=== PATIENT | female | born 1935 | race Caucasian/White ===

== ENCOUNTER → 2016-11-30 | Outpatient (CLI) | payer OTHER, BC | LOC: BHFA 13:00 | PROVIDERS: ATTEND Surgery | DX: R60.0 Localized edema (principal); M79.662 Pain in left lower leg ==

== ENCOUNTER → 2016-12-29 | Outpatient (CLI) | payer OTHER, BC | LOC: FIMAGING 14:35 | DX: Z12.31 Encounter for screening mammogram for malignant neoplasm of breast (principal) | CPT/HCPCS: G0202 ==

== ENCOUNTER → 2017-01-14 | Outpatient (CLI) | payer OTHER, BC | LOC: FIMAGING 14:04 | PROVIDERS: ATTEND Surgery | DX: M79.662 Pain in left lower leg (principal); M25.472 Effusion, left ankle ==

== ENCOUNTER → 2017-01-29 | Outpatient (CLI) | payer OTHER, BC ==
[~2017-01-29] MED LIST: IOPAMIDOL (ISOVUE-300) 100 ML BTL ONE
== END ==
LOC: FIMAGING 14:25
PROVIDERS: ATTEND Surgery
DX: K57.30 Diverticulosis of large intestine without perforation or abscess without bleeding (principal); N32.3 Diverticulum of bladder
CPT/HCPCS: 72193; Q9967

== ENCOUNTER 2017-06-27 15:45 | Emergency (ER) | payer OTHER, BC ==
[2017-06-27 15:54] VITALS: TEMP 98.2
--- NOTE | 2017-06-27 16:38 | EDPHY ---
H & P Stated Complaint: lost balance and fell inj l shoulder denies loc or neck pain Time Seen by Provider: 06/27/17 16:12 HPI/ROS: CHIEF COMPLAINT: Mechanical fall, left shoulder pain HISTORY OF PRESENT ILLNESS: The patient presents to the ED after she sustained a mechanical fall. The patient typically walks with a walker secondary to underlying multiple sclerosis. The patient fell onto her left shoulder. She has pain in her proximal humerus and distal left clavicle. She did sustain some superficial skin tears. The patient did not strike her head or lose consciousness. She has no complaints of headache or neck pain. The patient denies additional extremity complaints. The patient reports her pain is moderate in nature. It is worsened with attempted movement. REVIEW OF SYSTEMS: A comprehensive 10 point review of systems is otherwise negative aside from elements mentioned in the history of present illness. Source: Patient - Personal History Current Tetanus/Diphtheria Vaccine: Unsure - Medical/Surgical History Hx Asthma: No Hx Chronic Respiratory Disease: No Hx Diabetes: No Hx Cardiac Disease: No Hx Renal Disease: No Hx Cirrhosis: No Hx Alcoholism: No Hx HIV/AIDS: No Hx Splenectomy or Spleen Trauma: No Other PMH: MS, CVA, atelectasis, HTN, right shoulder surgery - Social History Smoking Status: Never smoked - Physical Exam Exam: General Appearance: Elderly female, no acute distress Head: Atraumatic Eyes: Pupils equal, round, reactive ENT, Mouth: No hemotympanum, no oral trauma Neck: Nontender, trachea midline Respiratory: No chest wall tender, subcutaneous air, lungs clear bilaterally Cardiovascular: Regular rate and rhythm Abdomen: Abdomen is soft and nontender, pelvis stable Skin: Superficial skin tears noted to the right forearm and left hand Back: No midline T/L/S pain Extremities: Tenderness to palpation left distal clavicle, left proximal humerus Neurological: A&Ox3, normal motor function, normal sensory exam Constitutional: Initial Vital Signs Temperature (C) 36.8 C 06/27/17 15:51 Heart Rate 66 06/27/17 15:51 Respiratory Rate 17 06/27/17 15:51 Blood Pressure 149/84 H 06/27/17 15:51 O2 Sat (%) 90 L 06/27/17 15:51 O2 Delivery Mode Nasal Cannula O2 (L/minute) 2 Allergies/Adverse Reactions: epinephrine Allergy (Severe, Verified 06/27/17 15:50) SOB Sulfa (Sulfonamide Antibiotics) Allergy (Verified 06/27/17 15:50) Hives LACTOSE Allergy (Uncoded 10/30/11 13:50) Diarrhea Home Medications: Medication Instructions Recorded Albuterol [Proventil Inhaler] 2 puffs IH QID 10/30/11 Diltiazem HCl [Diltiazem Er] 180 mg PO BID 10/30/11 Guaifenesin [Mucinex] 1,200 mg PO BID 10/30/11 Methenamine Mandelate [METHENAMINE 500 mg PO BID 10/30/11 MANDELATE] Atenolol 11/01/15 Losartan 11/01/15 Medical Decision Making - Diagnostics Imaging Results: Imaging Impressions Shoulder X-Ray 06/27/17 16:24 Impression: 1. Fracture distal left clavicle without displacement. 2. Underlying bronchiectasis, mucous plugging, and reticular nodular densities left mid to upper lung similar to prior CT study. ED Course/Re-evaluation: The patient presents to the ED after mechanical fall. She has superficial skin tears which were treated in the emergency department with Steri-Strips and sterile dressings. The patient was taken for a shoulder x-ray which demonstrates a distal left clavicle fracture. The patient is placed in a sling. She declines narcotic pain medications. She will follow up with our on- call orthopedic surgeon Dr. Dixon as an outpatient. The patient has no evidence of a closed head injury. She neurologically intact. She is not anticoagulated. Differential Diagnosis: Differential diagnosis considered includes fracture, sprain, dislocation, neurovascular injury, laceration Departure - Departure Disposition: Home, Routine, Self-Care Clinical Impression: Clavicle fracture Qualifiers: Encounter type: initial encounter Clavicle location: lateral end Fracture type : closed Fracture alignment: displaced Laterality: left Qualified Code(s): S42.032A - Displaced fracture of lateral end of left clavicle, initial encounter for closed fracture Condition: Good Instructions: Clavicle Fracture (ED) Additional Instructions: 1. Tylenol as needed for pain. 2. Wear sling for comfort. 3. Please schedule a follow-up appointment with the orthopedic surgeon you have been referred to next week. 4. Return to the ED immediately for any worsening pain, numbness or weakness. Referrals: Jhonathan Schmidt MD [Primary Care Provider] - As per Instructions Devonte Dixon MD [Medical Doctor] - As per Instructions
[2017-06-27 18:17] VITALS: BP 149/72; PULSE 82; RESP 18; O2SAT 93
== END 2017-06-27 18:17 | disposition home or self-care (01) ==
DX: S42.032A Displaced fracture of lateral end of left clavicle, initial encounter for closed fracture (principal); I10 Essential (primary) hypertension; Z86.73 Personal history of transient ischemic attack (TIA), and cerebral infarction without residual deficits; W18.39XA Other fall on same level, initial encounter

== ENCOUNTER → 2017-08-25 | Outpatient (CLI) | payer OTHER, BC | LOC: FIMAGING 15:50 | PROVIDERS: ATTEND Internal Medicine Pulmonary Disease | DX: J47.9 Bronchiectasis, uncomplicated (principal); I25.10 Atherosclerotic heart disease of native coronary artery without angina pectoris ==

== ENCOUNTER → 2018-01-07 | Outpatient (CLI) | payer OTHER, BC | LOC: FIMAGING 13:35 | PROVIDERS: ATTEND Internal Medicine | DX: Z12.31 Encounter for screening mammogram for malignant neoplasm of breast (principal) ==

== ENCOUNTER → 2018-01-17 | Outpatient (CLI) | payer OTHER, BC | LOC: BMCIMAGING 15:32 | PROVIDERS: ATTEND Internal Medicine | DX: R60.9 Edema, unspecified (principal) ==

== ENCOUNTER → 2018-09-27 | Outpatient (CLI) | payer OTHER, BC | LOC: BHFA 14:45 | PROVIDERS: ATTEND Internal Medicine Cardiovascular Disease | DX: I34.0 Nonrheumatic mitral (valve) insufficiency (principal) ==

== ENCOUNTER → 2018-12-02 | Outpatient (CLI) | payer OTHER, BC | LOC: FIMAGING 13:16 | PROVIDERS: ATTEND Internal Medicine Pulmonary Disease | DX: Z09 Encounter for follow-up examination after completed treatment for conditions other than malignant neoplasm (principal); J47.9 Bronchiectasis, uncomplicated ==

== ENCOUNTER → 2019-02-27 | Outpatient (CLI) | payer OTHER, BC | LOC: FIMAGING 12:37 ==